=== PATIENT | male | born 1980 ===

== ENCOUNTER 2018-06-03 20:27 | Emergency (ER) | payer SELFPAY ==
[2018-06-03 20:46] VITALS: BP 127/81; PULSE 74; RESP 20; TEMP 97.9; O2SAT 99
--- NOTE | 2018-06-03 21:45 | C.PDOC ---
History Of Present Illness 37 year old male was doing metalwork while at work today and states a metal chip flew into his left eye. He was able to get it out but still has irritation and tearing to the eye. Patient does not wear contact. Denies any changes in vision. Chief Complaint (Nursing): Eye Problem History Per: Patient History/Exam Limitations: no limitations Onset/Duration Of Symptoms: Hrs Current Symptoms Are (Timing): Still Present Injury To Eye?: No Wears Contact Lens?: No Associated Symptoms: Other (Irritation and tearing) Recent travel outside of the [place]: No Past Medical History Reviewed: Historical Data, Nursing Documentation, Vital Signs Vital Signs: Last Vital Signs Temp 97.9 F 06/03/18 20:41 Pulse 74 06/03/18 20:41 Resp 20 06/03/18 20:41 BP 127/81 06/03/18 20:41 Pulse Ox 99 06/03/18 20:41 Family History: States: No Known Family Hx - Social History Hx Alcohol Use: No Hx Substance Use: No - Immunization History Hx Tetanus Toxoid Vaccination: No Hx Influenza Vaccination: No Hx Pneumococcal Vaccination: No Review Of Systems Constitutional: Negative for: Fever, Chills Eyes: Positive for: Other (Irritation, Redness). Negative for: Vision Change ENT: Negative for: Nose Discharge, Mouth Swelling Cardiovascular: Negative for: Palpitations Respiratory: Negative for: Cough, Shortness of Breath Gastrointestinal: Negative for: Nausea, Vomiting, Diarrhea Genitourinary: Negative for: Dysuria, Hematuria Musculoskeletal: Negative for: Back Pain Skin: Negative for: Rash Neurological: Negative for: Weakness, Numbness Physical Exam - Physical Exam Appears: Well, Non-toxic Skin: Normal Color, Warm, Dry Head: Atraumatic, Normacephalic Eye(s): bilateral: PERRL, EOMI, right: Normal Inspection, left: Other (Excessive tearing, conjunctival injection, no area of injury, no foreign body visualized, fluorescein on left medial sclera but no cornea uptake, no photophobia, no ciliary flush, no foreign body with lid eversion) Nose: Normal Oral Mucosa: Moist Neurological/Psych: Oriented x3, Normal Speech, Normal Cranial Nerves (Grossly intact), Normal Motor, Normal Sensation ED Course And Treatment O2 Sat by Pulse Oximetry: 99 (Room air) Pulse Ox Interpretation: Normal Medical Decision Making Medical Decision Making: Prophylactic antibiotic drops given, advised to return if discomfort continues. Disposition Counseled Patient/Family Regarding: Diagnosis, Need For Followup, Rx Given - Disposition Disposition: HOME/ ROUTINE Disposition Time: 21:46 Condition: STABLE Prescriptions: Tobramycin 0.3% [Tobrex 0.3% Ophth Soln] 5 drop OS QID #1 bottle Instructions: Corneal Abrasion (DC), Conjunctivitis (Noninfectious Pinkeye) (DC) Forms: Gen Discharge Inst Jordanian, Jobydu (Jordanian) Print Language: BENINESE - Clinical Impression Clinical Impression: Conjunctivitis, Corneal abrasion - PA / [employer] / Resident Statement MD/DO has reviewed & agrees with the documentation as recorded. - Scribe Statement The provider has reviewed the documentation as recorded by the Lizettibfrancesco Soler All medical record entries made by the Lizettibfrancesco were at my direction and personally dictated by me. I have reviewed the chart and agree that the record accurately reflects my personal performance of the history, physical exam, medical decision making, and the department course for this patient. I have also personally directed, reviewed, and agree with the discharge instructions and disposition.
== END 2018-06-03 21:54 | disposition home or self-care (01) ==
LOC: C.ER 20:27
DX: S05.02XA Injury of conjunctiva and corneal abrasion without foreign body, left eye, initial encounter (principal); W22.8XXA Striking against or struck by other objects, initial encounter; Y92.89 Other specified places as the place of occurrence of the external cause; H10.9 Unspecified conjunctivitis